=== PATIENT | female | born 2005 | race Caucasian/White ===

== ENCOUNTER 2024-04-12 21:37 | Emergency (ER) | payer OTHER ==
[~2024-04-12] VITALS: Wt 52.2 kg
[2024-04-12] MEDS ORDERED: SODIUM CHLORIDE 0.9% 500 ML IV ONE (22:10)
[2024-04-12] MEDS ORDERED: Ketorolac Tromethamine 15 MG/ML VIAL IV ONE (22:10)
[2024-04-12] MEDS ORDERED: IOHEXOL 300 MG/ML 100 ML VIAL IV ONE (22:10)
[2024-04-12 22:31] LABS: BASO # 0.1 10*3/uL (0.0-0.1); BASO % 0.5 % (0.0-1.0); EOS % 0.3 % (1.0-4.0); HEMATOCRIT 41.8 % (37.0-47.0); MEAN CELL VOLUME 91.1 fl (81.0-99.0); MEAN CORPUSCULAR HGB 30.1 pg (27.0-31.0); MEAN PLATELET VOLUME 9.5 fl (9.6-12.3); MONO # 1.2 10*3/uL (0.1-1.0); MONO % 9.9 % (3.0-9.0); PLATELET COUNT AUTOMATED 235 10*3/uL (130-400); RED BLOOD COUNT 4.59 10*6/uL (4.10-5.10); RED CELL DISTRI WIDTH 11.7 % (0-14.5); WHITE BLOOD COUNT 12.2 10*3/uL (4.8-10.8)
[2024-04-12 22:31] LABS: BILIRUBIN Negative (Negative); BLOOD 2+ (Negative); CLARITY Cloudy (Clear); COLOR Yellow (Yellow); GLUCOSE Negative (Negative); KETONE 3+ (Negative); LEUKO ESTERASE Trace (Negative); NITRITE Negative (Negative); PH 5.5 (4.5-8.0); SPECIFIC GRAVITY >= 1.030 (1.001-1.030)
[2024-04-12 22:49] LABS: ALKALINE PHOSPHATASE 58 U/L (46-116); BUN 7 mg/dl (9-23); CHLORIDE 101 mmol/L (98-107); LIPASE 32 U/L (12-53); POTASSIUM 3.6 mmol/L (3.4-5.1); SGPT/ALT 11 U/L (5-49); TOTAL PROTEIN 7.5 gm/dL (6.0-8.0)
[2024-04-12 23:01] LABS: EPITHELIAL CELLS 41-50; RBC 16-20 rbc/hpf (0-2)
[2024-04-13] MEDS ORDERED: MIRALAX POWDER17 G1 PO (00:28)
== END 2024-04-13 00:37 | disposition home or self-care (01) ==
LOC: ED 21:37
PROVIDERS: Physician Assistant Medical
DX: K59.00 Constipation, unspecified (principal); R82.4 Acetonuria; D64.9 Anemia, unspecified

== ENCOUNTER 2024-07-18 22:29 | Emergency (ER) | payer SELFPAY ==
[~2024-07-18] VITALS: Ht 157.4 cm; Wt 43.5 kg
[~2024-07-18 22:29] MED LIST: MIRALAX POWDER17 G1 PO
[2024-07-18] MEDS ORDERED: PROMETHAZINE25 M1 PO (22:38)
[2024-07-18] MEDS ORDERED: Ondansetron Hydrochloride 4 MG TAB SL ONE (23:05)
[2024-07-18] MEDS ORDERED: FAMOTIDINE 20 MG TAB PO ONE (23:05)
[2024-07-18 23:20] LABS: BASO # 0.1 10*3/uL (0.0-0.1); BASO % 1.5 % (0.0-1.0); EOS # 0.6 10*3/uL (0.0-0.4); EOS % 7.2 % (1.0-4.0); HEMATOCRIT 43.8 % (37.0-47.0); MEAN CELL VOLUME 90.1 fl (81.0-99.0); MEAN CORPUSCULAR HGB 30.2 pg (27.0-31.0); MEAN CORPUSCULAR HGB CONC 33.6 g/dl (33.0-37.0); MEAN PLATELET VOLUME 9.1 fl (9.6-12.3); MONO # 0.5 10*3/uL (0.1-1.0); MONO % 6.3 % (3.0-9.0); NEUT # 4.1 10*3/uL (2.3-7.9); NEUT % 49.1 % (47.0-73.0); PLATELET COUNT AUTOMATED 402 10*3/uL (130-400); RED BLOOD COUNT 4.86 10*6/uL (4.10-5.10); RED CELL DISTRI WIDTH 12.6 % (0-14.5); WHITE BLOOD COUNT 8.2 10*3/uL (4.8-10.8)
[2024-07-18 23:42] LABS: BILIRUBIN Negative (Negative); BLOOD Trace-Intact (Negative); CLARITY Clear (Clear); COLOR Yellow (Yellow); GLUCOSE Negative (Negative); KETONE Negative (Negative); LEUKO ESTERASE Negative (Negative); NITRITE Negative (Negative); PH 5.5 (4.5-8.0); UROBILINOGEN 0.2 E.U./dl (0.0-1.0)
[2024-07-18 23:46] LABS: BUN 8 mg/dl (9-23); CHLORIDE 103 mmol/L (98-107); POTASSIUM 4.1 mmol/L (3.4-5.1)
[2024-07-18 23:57] LABS: EPITHELIAL CELLS 31-40
[2024-07-18 23:58] LABS: BACTERIA TRACE; RBC 0-2 rbc/hpf (0-2); WBC 0-2 wbc/hpf (0-5)
== END 2024-07-19 01:38 | disposition home or self-care (01) ==
LOC: ED 22:29
PROVIDERS: Emergency Medicine
DX: R42 Dizziness and giddiness (principal); R11.0 Nausea; D64.9 Anemia, unspecified; Z87.891 Personal history of nicotine dependence

== ENCOUNTER 2024-10-23 23:39 | Emergency (ER) | payer OTHER ==
[~2024-10-23] VITALS: Ht 160 cm; Wt 45.8 kg
[~2024-10-23 23:39] MED LIST changes: +PROMETHAZINE25 M1 PO
[2024-10-24] MEDS ORDERED: PEPCID AC20 MG PO (00:03)
[2024-10-24] MEDS ORDERED: DOXYLAMINE-PYR1 EACH PO (00:03)
== END 2024-10-24 00:42 | disposition home or self-care (01) ==
LOC: ED 23:39
DX: O9A.211 Injury, poisoning and certain other consequences of external causes complicating pregnancy, first trimester (principal); S00.83XA Contusion of other part of head, initial encounter; O26.891 Other specified pregnancy related conditions, first trimester; G44.209 Tension-type headache, unspecified, not intractable; Z3A.08 8 weeks gestation of pregnancy

== ENCOUNTER 2025-03-25 12:35 | Emergency (ER) | payer OTHER ==
[~2025-03-25] VITALS: Ht 157.4 cm; Wt 52.2 kg
[~2025-03-25 12:35] MED LIST changes: +DOXYLAMINE-PYR1 EACH PO; +PEPCID AC20 MG PO
[2025-03-25] MEDS ORDERED: SODIUM CHLORIDE 0.9% 1,000 ML IV ONE (12:55)
== END 2025-03-25 17:19 | disposition home or self-care (01) ==
LOC: ED 12:35
DX: O29.43 Spinal and epidural anesthesia induced headache during pregnancy, third trimester (principal); Z3A.29 29 weeks gestation of pregnancy

== ENCOUNTER 2025-05-27 13:20 | Emergency (ER) | payer OTHER ==
[2025-05-27] MEDS ORDERED: PREPARATION H R28 GM T (13:44)
== END 2025-05-27 13:51 | disposition home or self-care (01) ==
LOC: ED 13:20
DX: K64.9 Unspecified hemorrhoids (principal); Z87.19 Personal history of other diseases of the digestive system